=== PATIENT | male | born 2005 | race Two or more races ===

== ENCOUNTER 2024-12-30 17:57 | Emergency (ER) | payer MEDICAID, OTHER ==
[~2024-12-30] VITALS: Ht 175.3 cm; Wt 72.3 kg
[2024-12-30 18:52] VITALS: BP 112/73; PULSE 54; RESP 16; TEMP 98.3; O2SAT 97
--- NOTE | 2024-12-30 19:02 | ED.PDOC ---
GI ASSESSMENT HPI Comments 19-year-old male presents to the ED chief complaint nausea and vomiting. Patient states was seen here earlier today was given IV fluids lab work medication for nausea vomiting and discharge with medication for diarrhea nausea and vomiting. Patient states continues with some nausea and vomiting. Denies fevers, chills, bloody diarrhea. Chief Complaint: Nausea/Vomiting Time Seen by MD: 18:39 Reviewed Notes: Nurses Notes, Medications, Allergies Allergies: Coded Allergies: Amoxicillin (Verified Allergy, Unknown, 12/30/24) Information Source: Patient Mode of Arrival: Ambulatory Past Medical History PAST MEDICAL HISTORY: Denies Surgical History: Denies all surgeries Family History Family History: Reviewed,noncontributory to illness, Unknown Social History Smoker: Non-Smoker Alcohol: Denies ETOH Use Drugs: Denies Drug Use Lives In: Home All Other Systems: Reviewed and Negative (see hpi) Physical Exam General Appearance: No Apparent Distress, Normal HEENT: Pharynx Normal Neck: Full Range of Motion, Non-Tender Respiratory: Lungs Clear, No Respiratory Distress, Normal Breath Sounds Cardiovascular: No Edema, No JVD, No Murmur, No Gallop, Normal Peripheral Pulses, Regular Rate/Rhythm Breast Exam: Deferred Gastrointestinal: No Organomegaly, Non Tender, No Pulsatile Mass, Normal Bowel Sounds, Soft Genitalia: Deferred Pelvic: Deferred Rectal: Deferred Extremities: Normal capillary refill, Normal range of motion, No pedal edema Musculoskeletal : Apperance: Normal Neurologic: Alert, No Motor Deficits, Normal Affect, Normal Mood, No Sensory Deficits Cerebellar Function: Normal Reflexes: NOT DONE Skin: Dry, Normal Color, Warm Lymphatic: No Adenopathy Was a procedure done? Was a procedure done?: No GI differential Dx Differential Diagnosis: Gastritis/PUD, Gastroenteritis, Food Poisoning X-Ray, Labs, Meds, VS Vital Signs Date Time Temp Pulse Resp B/P (MAP) Pulse Ox O2 Delivery O2 Flow Rate FiO2 12/30/24 18:52 54 16 97 Room Air 12/30/24 18:52 98.3 54 16 112/73 (86) 97 98.3 12/30/24 17:59 98.6 49 18 123/93 98 98.6 X-Ray, Labs, Meds, VS Comment Physical exam grossly benign no vomiting noted during patient's exam. Patient has fluids with them able to maintain fluids Per patient not taking medication for nausea properly patient was educated take medicine under the tongue wait about 15-20 minutes and then take sips of fluids. Advised on ER return precautions patient indicates understanding agrees with discharge plan of care. Time of 1ST Reevaluation: 18:30 Reevaluation 1ST: Improved Time of 2ND Reevaluation: 18:57 Reevaluation 2ND: Improved Patient Education/Counseling: Diagnosis, Treatment, Prognosis, Need For Follow Up Family Education/Counseling: No Family Present SEPSIS Sepsis Screen Date sepsis recognized/suspect: Dec 30, 2024 Time Sepsis recognized/suspect: 180 Recent Procedure: No On Antibiotic Therapy: No Respiratory Rate >20: No Heart Rate >90: No Temp<36 C (96.8 F) or >38.3 C: No SBP <90 or MAP <65 mmHG: No New Acute Mental Status Change: No Is the patient on CPAP, BIPAP,: No Vital Signs Date Time Temp Pulse Resp B/P (MAP) Pulse Ox O2 Delivery O2 Flow Rate FiO2 12/30/24 18:52 54 16 97 Room Air 12/30/24 18:52 98.3 54 16 112/73 (86) 97 98.3 12/30/24 17:59 98.6 49 18 123/93 98 98.6 Departure 1 Departure Time of Disposition: 18:57 Impression: Primary Impression: Nausea & vomiting Qualified Codes: R11.2 - Nausea with vomiting, unspecified Disposition: 01 HOME / SELF CARE / HOMELESS Condition: Stable Discharged With: Self Critical Care Note Critical Care Time?: No Stability Stability form required: SARAVANAN Squires Dec 30, 2024 19:02
== END 2024-12-30 18:57 | disposition home or self-care (01) ==
LOC: ER 17:57
DX: R11.2 Nausea with vomiting, unspecified (principal); R19.7 Diarrhea, unspecified; Z88.0 Allergy status to penicillin